=== PATIENT | female | born 1995 | race Caucasian/White ===

== ENCOUNTER 2022-03-15 02:50 | Emergency (ER) | payer OTHER ==
[~2022-03-15] VITALS: Ht 160 cm; Wt 52.2 kg
[2022-03-15 02:50] VITALS: BP 111/80
--- NOTE | 2022-03-15 02:50 | NUR ---
KAREEM VARGAS TO CHAIR A
--- NOTE | 2022-03-15 03:05 | NUR ---
PATIENT BIB [facility] POLICE DEPT. PATIENT EXAMINED BY DR. DANIELLE. PATIENT MEDICALLY CLEARED AND RELEASED IN CUSTODY IN STABLE CONDITION. ORIGINAL PRE-BOOK FORM GIVEN TO OFFICER BOBBY, #[id number].
== END 2022-03-15 03:05 ==
LOC: MED 02:50
DX: Z02.89 Encounter for other administrative examinations (principal); V89.2XXA Person injured in unspecified motor-vehicle accident, traffic, initial encounter; Y93.89 Activity, other specified; Y92.89 Other specified places as the place of occurrence of the external cause; Y99.8 Other external cause status
CPT/HCPCS: 99283